=== PATIENT | male | born 1985 | race Caucasian/White ===

== ENCOUNTER 2022-04-22 21:11 | Emergency (ER) | payer OTHER ==
[2022-04-22] MEDS ORDERED: RABIES VACCINE (PCEC) 2.5 UNIT KIT IM ONE (21:50)
[2022-04-22] MEDS ORDERED: RABIES IMM GLOB 300 UNIT/2 ML VIAL IM ONE (21:50)
[2022-04-22 21:52] VITALS: BP 144/91; PULSE 66; RESP 20; TEMP 98
--- NOTE | 2022-04-22 22:16 | ED ---
Animal Bite HPI - General Chief Complaint: Animal Bite Stated Complaint: [facility] Time Seen by Provider: 04/22/22 21:43 Source: patient, RN notes reviewed Mode of arrival: ambulatory Limitations: no limitations - History of Present Illness Initial Comments: This is a 36 year old male who presents to the emergency department for a dog bite to the right thigh. He works for [employer] and was bitten by a dog. 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 He was at [facility] urgent care earlier today and was given his t etanus vaccine and a prescription for antibiotics. He was told to come to the emergency department for the rabies vaccines. 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 Denies any fevers, chills, sore throat, cough, dyspnea, chest pain, palpitations, abdominal pain, nausea, vomiting, diarrhea, back pain, or headaches. MD Complaint: animal bite Right: Thigh Animal: dog Description: household pet Mechanism: bite - Related Data Patient Tetanus UTD: Yes Allergies Allergy/AdvReac Type Severity Reaction Status Date / Time No Known Allergies Allergy Verified 04/22/22 21:52 Review of Systems ROS Statement: Those systems with pertinent positive or pertinent negative responses have been documented in the HPI. ROS Other: All systems not noted in ROS Statement are negative. Past Medical History Past Medical History: No Reported History Past Surgical History: Cholecystectomy Past Psychological History: No Psychological Hx Reported Smoking Status: Never smoker Past Alcohol Use History: None Reported Past Drug Use History: None Reported General Exam Limitations: no limitations General appearance: alert, in no apparent distress Head exam: Present: atraumatic, normocephalic, normal inspection Respiratory exam: Present: normal lung sounds bilaterally. Absent: respiratory distress, wheezes, rales, rhonchi, stridor Cardiovascular Exam: Present: regular rate, normal rhythm, normal heart sounds. Absent: systolic murmur, diastolic murmur, rubs, gallop, clicks Neurological exam: Present: alert, oriented X3, CN II-XII intact Psychiatric exam: Present: normal affect, normal mood Skin exam: Present: other (Bite galen on the anterior aspect of the right thigh. There is no visible subcutaneous tissue or active bleeding.) Course Vital Signs 04/22/22 21:48 Temperature 98 F Pulse Rate 66 Respiratory 20 Rate Blood Pressure 144/91 O2 Sat by Pulse 99 Oximetry Medical Decision Making - Medical Decision Making This is a 36-year-old male who presents to the emergency department for a dog bite. The injury is fairly superficial and already starting to heal, and no repair is required. Patient was given the first rabies vaccinations in the emergency department and will return on days 3, 7, and 14 for repeat vaccinations. He is instructed to take the antibiotic as prescribed by [facility] and to alternate with ibuprofen and Tylenol as needed for any pain relief. Return precautions reviewed in depth, the patient is instructed to return to the emergency department with any new, worsening, or concerning symptoms. Patient verbalized understanding. This case was discussed in detail with the attending ED physician. Presentation, findings, and treatment plan discussed in detail as well. Disposition Clinical Impression: Dog bite Disposition: HOME SELF-CARE Instructions (If sedation given, give patient instructions): Animal Bite (ED) Additional Instructions: Return to the emergency department with any new, worsening, or concerning symptoms. You will need to have the additional rabies vaccines on days 3(04/25) 7(04/29), and 14(05/06). You will return to the emergency department on the for the next rabies vaccine and you will go to [facility] on the and . Alternate with Ibuprofen and Tylenol as needed for pain. Take the antibiotic as prescribed by urgent care. Is patient prescribed a controlled substance at d/c from ED?: No Referrals: None,Stated [Primary Care Provider] - 1-2 days
== END 2022-04-22 23:50 | disposition home or self-care (01) ==
LOC: EC 21:11
DX: S71.151A Open bite, right thigh, initial encounter (principal); Z23 Encounter for immunization; W54.0XXA Bitten by dog, initial encounter
CPT/HCPCS: 90377; 90471; 90675; 96372; 99282